=== PATIENT | female | born 1985 | race Caucasian/White ===

== ENCOUNTER → 2017-11-25 | Outpatient (CLI) | payer OTHER | LOC: M LRY 12:52 | DX: M79.671 Pain in right foot (principal) | CPT/HCPCS: G0463 ==

== ENCOUNTER → 2018-02-22 | Outpatient (REF) | payer OTHER ==
[2018-02-22 21:29] LABS: CHLAMYDIA DNA AMPLIFICATION NEGATIVE (NEGATIVE); GC DNA AMPLIFICATION NEGATIVE (NEGATIVE)
== END ==
LOC: M SFHCLERA 14:26
DX: R30.0 Dysuria (principal)
CPT/HCPCS: 87086